=== PATIENT | male | born 1965 | race Caucasian/White ===

== ENCOUNTER 2024-06-13 08:13 | Outpatient (AMB) | payer MEDICARE, SELFPAY ==
--- NOTE | 2024-06-13 08:31 | MHC.OFFVIS ---
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 Patient reports his knee pain has been present for about 3 years ago. He was treated at [facility] for his back as well as his knees which did not provide him with relief. He was also seen at [facility] in the past who told him they would not operate on him. He d/c care as they did not accept his insurance. Currently his pain is located at the anterior, lateral and medial aspect of knee and both knees are equal in pain. Denies numbness or tingling. Finds some relief with hydrochloric acid 200mg daily as well as Tylenol and Advil. 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 He was previously seen by [facility] for bilateral knees and has had cortisone injections which were helpful in the beginning however they soon became ineffective. He is a diabetic which is well controlled. States his A1c is approximately 6.9. He was on Ozempic for approximately a year and did lose a significant amount of weight however insurance no longer covers this and he had to come off. He states he does not smoke. He does have what appears to be venous stasis but does not see a vascular doctor. Denies cardiopulmonary history. States he does have history of stroke in his family. He is retired, used to work in the [employer] business. Does do some work now with [employer]. Finds it difficult to ambulate on a daily basis climb stairs. Standing on his feet for long periods of time also causes discomfort. [facility] Medical History (Updated 06/13/24 @ 11:23 by Marti Bernabe PA-C) Venous stasis Diabetes Surgical History (Updated 06/13/24 @ 08:37 by ANGELITA Malin) Hx of hand surgery Family History (Updated 06/13/24 @ 11:21 by Marti Bernabe PA-C) Other Stroke Social History (Updated 06/13/24 @ 08:41 by ANGELITA Malin) Patient Tobacco Use Status: Never used Tobacco Current occupational status: retired Review of Systems Const All systems reviewed & are unremarkable except as noted in HPI and below Physical Exam Vital Signs: BMI result Body Mass Index 53.9 Const General: cooperative and no acute distress Orientation/consciousness: patient oriented x3 Resp Effort & Inspection: normal respiratory effort and able to speak in complete sentences Cardio Peripheral pulses: Peripheral pulses 2+ throughout Neuro General: patient oriented x3 Extrem Other: Bilateral knees are normal to inspection. He has full flexion and extension. Mild tenderness medially. Crepitus with range of motion of the knee along the patella laterally. He does have venous stasis bilateral lower extremities right worse than left. Neurovascularly intact. Office Procedures AMB Joint Injection/Aspiration Joint Injection/Aspiration Primary Site: right knee Secondary Site: left knee Prep: site was prepped using aseptic technique, ethochloride spray was applied and injection warnings given Injected: 40 mg of, DepoMedrol, with 8 mL of, 1% plain lidocaine and in the joint Approach Used: anterolateral Procedure: The patient tolerated the procedure well and there was some relief with the local anesthesia Coding 43502 - Glenohumeral/Tronchanteric Bursa/Intraarticular Procedure code (CPT) selection complete Results Reviewed Results Reviewed: X-rays of both knees obtained in the office today and reviewed by me show end-stage medial compartment osteoarthritis with severe patellofemoral arthritis Assessment & Plan Assessment & Plan (1) Arthritis of both knees: Code(s): M17.0 - Bilateral primary osteoarthritis of knee Category: Medical Plan: We discussed options today which includes surgical versus nonsurgical intervention. I explained the risks of total knee arthroplasty with a BMI of 53, diabetes and evidence of venous stasis/insufficiency. Complications such as wound healing infection and blood clots/pulmonary embolism were discussed with him today I encouraged him to get in contact with his primary care doctor again to discuss Ozempic since he has had good results from it in the past and now with new insurance he may qualify. I also recommend he meet with Dr. Bowman in 3 months to see if we can get the process started to optimize him to be a surgical candidate going forward. We discussed benefits of steroid injection which she is interested in today. Both knees were injected today with steroid which she tolerated well. We also discussed their diabetes and the effect the steroid can have on thier blood glucose levels; therefore, they will continue to monitor these very closely over the next 72 hours The patient is content with this plan and will see us in [address] Bowman, sooner if needed. Orders: Orders XR knee RT 3V Today M17.11 - Unilateral primary osteoarthritis, right knee XR knee LT 3V Today M25.562 - Pain in left knee Coding Level of Care Code New Pt Level 4 (04042) Complex EM visit Add On G2211 Diagnoses Arthritis of both knees M17.0 CPT Codes Coding - Joint 7: 66339 - Glenohumeral/Tronchanteric Bursa/Intraarticular ([id number])
--- OUTSIDE RECORDS SUMMARY | 2024-06-13 08:33 | XMS_ITS | Clinical Summary ---
Author Organization [facility], Address [address] [place] [address] Phone Care Team Providers Care Opener Name Role Phone Marvin Khan MD Primary Care Provider [phone]- [phone] Allergies Active Allergy Reactions Criticality Noted Date Comments Atorvastatin 03/03/2022 Cefazolin 03/03/2022 Other reaction(s): glossal edema Iodinated Contrast Media Swelling 03/03/2022 Medications aspirin (ST SHRUTHI) 81 MG EC tablet Take 81 mg by mouth 1 (one) time each day Active bumetanide (BUMEX) 1 MG tablet Take 1 mg by mouth 1 (one) time each day Active glipiZIDE (GLUCOTROL) 10 MG tablet Take 10 mg by mouth in the morning and 10 mg in the evening. Take before meals. Active Empagliflozin (Jardiance) 10 MG tablet Take 10 mg by mouth 1 (one) time each day in the morning Active insulin glargine (LANTUS) 100 UNIT/ML injection Inject under the skin every night Active losartan (COZAAR) 100 MG tablet Take 100 mg by mouth 1 (one) time each day Active Colchicine (Mitigare) 0.6 MG capsule Take by mouth Active OMEPRAZOLE PO Take by mouth Active rosuvastatin (CRESTOR) 20 MG tablet Take 20 mg by mouth 1 (one) time each day Active spironolactone (ALDACTONE) 25 MG tablet Take 25 mg by mouth 1 (one) time each day Active Dulaglutide (Trulicity) 0.75 MG/0.5ML solution pen-injector Inject under the skin Active Dulaglutide (Trulicity) 1.5 MG/0.5ML solution pen-injector Inject under the skin Active cetirizine (ZyrTEC) 10 MG tablet Take 10 mg by mouth 1 (one) time each day Active Active Problems Problem Noted Date Diagnosed Date Stage 3b chronic kidney disease 07/27/2022 Stage 3a chronic kidney disease 03/09/2022 Renal disorder due to type 2 diabetes mellitus 1 05/09/2021 Essential (primary) hypertension 03/09/2022 Diabetes mellitus 03/03/2022 Overview (03/03/2022): 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;[facility],[place] Vitamin D deficiency 03/03/2022 Stage 3 chronic kidney disease 03/03/2022 Adrenal mass 03/03/2022 Immunizations Name Administration Dates Next Due H1N1 Inj 04/08/2009 Influenza Whole 01/16/2019, 8,01/04/2012,12/22/2010,01/16,03/13/2008,02/24/2007,03/18/2006 Influenza, Unspecified 02/17/2021,2019,05/16/2017,03/17/2015,12/2013,12/28/2012,01/16/2010 Moderna SARS-COV-2 02/16/2021,07/10/2020, 021 Pneumococcal Polysaccharide 2007, 8 Tdap 10/03/2012 Tetanus Toxoid, Unspecified 2002 Social History Tobacco Use Types Packs/Day Years Used Date Smoking Tobacco: Never Assessed Sex and Gender Information Value Date Recorded Sex Assigned at Not on file Legal Sex Male 5:19 PM EST Gender Identity Not on file Sexual Orientation Not on file Plan of Treatment Health Maintenance Due Date Last Done Comments Pneumococcal Vaccine: Pediatrics (0 to 5 Years) and At-Risk Patients (6 to 64 Years) (3 of 3 - PCV) 2008 2007, 02/24/1998 Colorectal Cancer Screening: Annual FOBT 2012 Colorectal Cancer Screening: Colonoscopy 2012 Colorectal Cancer Screening: Sigmoidoscopy 2012 Diabetes: Ophthalmology Exam 03/02/2022 Diabetes: Pedal Pulse Checked 03/02/2022 Diabetes: Sensory Foot Exam 03/02/2022 Diabetes: Visual Foot Exam 03/02/2022 Diabetes: Hemoglobin A1C 08/24/2023 05/26/2023 Influenza Vaccine (#1) 2023 , 01/18/2020, 01/16/2019, Additional history exists Hepatitis B Vaccine Aged Out No longe r eligible based on patient's age to complete this topic Procedures Procedure Name Priority Date/Time Associated Diagnosis Comments HEMOGLOBIN A1C Routine 05/26/2023 8:49 AM EST Stage 3b chronic kidney disease (HCC) Renal disorder due to type 2 diabetes mellitus <Other diabetic kidney complication> (HCC) Essential (primary) hypertension from Last 3 Months or Most Recently Relevant to Health Maintenance Results * (ABNORMAL) Hemoglobin A1c (05/26/2023 8:49 AM EST) Hemoglobin A1C 9.1(H) (4.0-5.6) % [facility] Comment: MONITORING: In known diabetic patients, hemoglobin A1c targets should be discussed with health care provider. DIAGNOSTIC USE: ??The [place] Diabetes Association (ADA) and the World Health Organization (WHO) recommend the use of HbA1c to diagnose diabetes using a threshold of 6.5%. Patients who have an HbA1c between 5.7% and 6.4% are considered at increased risk for developing diabetes in the future. CAUTION: Falsely low HbA1c results may be observed in patients with hemolytic anemia, homozygous forms of abnormal hemoglobin (e.g. SS, CC, SC), , recent blood loss or hemoglobin F greater than 7%. Fructosamine may be used as an alternate test in these cases. REFERENCE: ADA: Standards of Medical Care in Diabetes 2020, The Journal of Clinical and Applied Research and Education Volume 43, Supplement 1 Testing performed or reported by [facility] [employer], a Service of [facility], [address] [place] [id number] Molina Vaca MD, Go Go Dancer IA# [id number] Blood (Blood, Venous) 05/26/2023 8:49 AM EST 05/26/2023 9:27 AM EST us Wyatt Nance MD LAB BLOOD ORDERABLES Final Resul t [facility] from Last 3 Months or Most Recently Relevant to Health Maintenance Insurance [facility] Care Teams Opener Relationship Specialty Start Date End Date Marvin Khan MD [address] [place] [address] [address] [place], [place] PCP - General Internal Medicine 03/02/22
[2024-06-13 08:34] VITALS: BMI 53.9
== END 2024-06-13 11:01 | disposition home or self-care (01) ==
PROVIDERS: Visit Provider Physician Assistant
DX: M17.0 Bilateral primary osteoarthritis of knee (principal)
CPT/HCPCS: 20610; 99204

== ENCOUNTER → 2024-06-13 08:16 | Outpatient (BNV) | payer MEDICARE, SELFPAY | PROVIDERS: Visit Provider Radiology Diagnostic Radiology | DX: M17.11 Unilateral primary osteoarthritis, right knee (principal); M25.562 Pain in left knee | CPT/HCPCS: 73562 ==

== ENCOUNTER 2024-06-13 10:03 | Outpatient (REF) | payer MEDICARE, SELFPAY ==
--- NOTE | ~2024-06-13 | XR_ITS ---
CLINICAL HISTORY: M17.11 - Unilateral primary osteoarthritis, right knee 2 view right knee Comparison: None Findings: Bones intact. No dislocations. There is marked medial joint space narrowing with [id number]. Small marginal osteophytes are noted. There is patellofemoral joint space Narrowing as well. No joint effusion. No radiopaque foreign body. IMPRESSION: 1. Marked medial joint space narrowing with [id number]. 2. Patellofemoral joint space. This document has been electronically signed by: Al Kilgore MD on 06/13/2024 10:43:46
--- NOTE | ~2024-06-13 | XR_ITS ---
CLINICAL HISTORY: M25.562 - Pain in left knee 4 view left knee Comparison: None Findings: There is marked medial joint space narrowing with bone on bone. Lateral compartment is normal. Patellofemoral joint demonstrates no acute abnormalities. There is a small suprapatellar effusion. No radiopaque foreign body. IMPRESSION: 1. Marked medial joint space narrowing with bone on bone. 2. Small suprapatellar effusion. This document has been electronically signed by: Al Kilgore MD on 06/13/2024 10:39:09
--- OUTSIDE RECORDS SUMMARY | 2024-06-15 11:09 | XMS_ITS | Clinical Summary ---
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 DIAGNOSTIC USE: ??The [place] Diabetes Association (ADA) and the World Health [...] Supplement 1 Testing performed or reported by [facility] Reference [employer], a Service of [facility], [address] [place] [id number] Molina Vaca MD, Nursing Staff Development Coordinator IA# [id number] Blood (Blood, Venous) 05/26/2023 8:49 AM EST 05/26/2023 9:27 AM EST us Wyatt Nance MD LAB BLOOD ORDERABLES Final Resul t [facility] from Last 3 Months or Most Recently Relevant to Health Maintenance Insurance [facility] Care Teams Materials Recycler Relationship Specialty Start Date End Date Marvin Khan MD [address] [place] [address] [address] [place], [place] PCP - General Internal Medicine 03/02/22
== END 2024-06-13 10:04 | disposition home or self-care (01) ==
LOC: HO.HOSX 10:03
PROVIDERS: Visit Provider Physician Assistant
DX: M25.562 Pain in left knee (principal); M25.561 Pain in right knee; M17.0 Bilateral primary osteoarthritis of knee
CPT/HCPCS: 20610; 73562; 99202; J1010; J2003

== ENCOUNTER 2024-07-02 08:37 | Outpatient (AMB) | payer MEDICARE, SELFPAY ==
--- NOTE | 2024-07-02 07:49 | A.OFFVIS_ITS ---
Vital Signs 07/02/24 08:41 07/02/24 08:43 Height 5 ft 9 in 5 ft 9 in Weight 365 lb 365 lb BMI 53.9 53.9 Intake Visit Reasons: OV - Bilateral Knee Pain Intake Note: Choco is a 59 year old male who presents today for a follow up of his bilateral knee OA. He was last seen with Marti on 06/13/24 where bilateral knees were injected. He was previously seen at [facility] where he was told that he was not a surgical candidate. Patient reports that he has had good relief with the injections - he would like to discuss knee replacements. The knees are equally painful. Allergies atorvastatin [From Lipitor] Adverse Reaction (Verified 07/02/24 08:45) Joint Pain cephazolin Allergy (Uncoded 07/02/24 08:43) unknown iv contrast Allergy (Uncoded 07/02/24 08:43) unknown HPI HPI OV - Bilateral Knee Pain: Details: 59-year-old presents to the office today for bilateral OA. He was previously seen by [facility] for bilateral knees and has had cortisone injections which were helpful in the beginning however they soon became ineffective. He is a diabetic which is well controlled. States his A1c is approximately 6.9. He was on Ozempic for approximately a year and did lose a significant amount of weight however insurance no longer covers this and he had to come off. He states he does not smoke. He does have what appears to be venous stasis but does not see a vascular doctor. Denies cardiopulmonary history. States he does have history of stroke in his family. 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 Finds it difficult to ambulate on a daily basis climb stairs. Standing on his feet for long periods of time also causes discomfort. 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
[2024-07-02 08:41] VITALS: BMI 53.9
[2024-07-02 08:43] VITALS: BMI 53.9
--- NOTE | 2024-07-02 09:34 | MHC.OFFVIS ---
Vital Signs 07/02/24 08:41 07/02/24 08:43 07/02/24 09:39 Height 5 ft 9 in 5 ft 9 in Weight 365 lb 365 lb BMI 53.9 53.9 53.9 Intake Visit Reasons: OV - Bilateral Knee Pain Allergies atorvastatin [From Lipitor] Adverse Reaction (Verified 07/02/24 08:45) Joint Pain cephazolin Allergy (Uncoded 07/02/24 08:43) unknown iv contrast Allergy (Uncoded 07/02/24 08:43) unknown HPI HPI OV - Bilateral Knee Pain: Details: Giuseppe is a 59-year-old gentleman with bilateral knee osteoarthritis. He has been to see surgeons in the past and has had injections and physical therapy and was working on weight loss and glucose control. His insurance changed and he comes in here to discuss continuing his care. He feels very limited in his ambulatory capacity. He feels that his knee arthritis is preventing him from exercising and losing weight. He feels quality of his life is diminished. [facility] Medical History (Updated 07/02/24 @ 09:37 by Kris Bowman MD) Venous stasis Diabetes Surgical History (Updated 06/13/24 @ 08:37 by ANGELITA Malin) Hx of hand surgery Family History (Updated 06/13/24 @ 11:21 by Marti Bernabe PA-C) Other Stroke Social History (Updated 06/13/24 @ 08:41 by ANGELITA Malin) Patient Tobacco Use Status: Never used Tobacco Current occupational status: retired Physical Exam Vital Signs: BMI result Body Mass Index 53.9 Extrem Other: Varus alignment bilateral knees. 10 to 125 degrees bilaterally. Medial compartment tenderness to palpation. Bilateral venous stasis lower legs right greater than left with several chronic wounds in the lateral aspect of the right lower leg. Distally I can not palpate pulses but is feet are warm and seemingly well perfused. Quality Reporting (2019) Adult ([facility] 138/06/09/68) Body Mass Index: 53.9 Results Reviewed Results Reviewed: I personally reviewed relevant radiographs. Severe bilateral varus osteoarthritis Assessment & Plan Assessment & Plan (1) Arthritis of both knees: Code(s): M17.0 - Bilateral primary osteoarthritis of knee Category: Medical Plan: Choco is a 59-year-old gentleman with severe bilateral knee osteoarthritis. He has had injections most recently about a month ago which were approximately 50% helpful. He continues, however, to be unable to ambulate comfortably and his daily activities are severely limited. He does have risk factors for arthroplasty including high BMI, diabetes and venous stasis of the lower legs. We had a long discussion regarding treatment options. I do think arthroplasty is in his future but we need to try to mitigate these risks factors. I recommend ABIs is I can not easily palpate his dorsalis pedis pulse. I also recommend a referral to bariatric. Apparently he was on Ozempic but it stopped working after a short period of time. He is not particularly interested in surgery but his insurance has. Pain for Ozempic so he is not sure what to do next. I think a referral to bariatric may be of some assistance. I also think he would benefit from viscosupplementation. We will do this in a proximally 2 months. (2) Morbid obesity with BMI of 50.0-59.9, adult: Code(s): E66.01 - Morbid (severe) obesity due to excess calories; Z68.43 - Body mass index [BMI] 50.0-59.9, adult Category: Medical Plan: referral to bariatrics (3) Diabetes: Code(s): E11.9 - Type 2 diabetes mellitus without complications Category: Medical Plan: controlled (4) Venous stasis: Code(s): I87.8 - Other specified disorders of veins Category: Medical Plan: ABIs and possible referral to vascular Orders: Orders US MARY complete Today I87.8 - Other specified disorders of veins Referrals Medical Weight Management Referral E66.01 - Morbid (severe) obesity due to excess calories Coding Level of Care Code Est Pt Level 4 (76899) Diagnoses Arthritis of both knees M17.0 Morbid obesity with BMI of 50.0-59.9, adult E66.01; Z68.43 Diabetes E11.9 Venous stasis I87.8
[2024-07-02 09:39] VITALS: BMI 53.9
== END 2024-07-02 09:15 | disposition home or self-care (01) ==
LOC: HO.HOS 08:38
PROVIDERS: Visit Provider Orthopaedic Surgery
DX: M17.0 Bilateral primary osteoarthritis of knee (principal); E66.01 Morbid (severe) obesity due to excess calories; Z68.43 Body mass index [BMI] 50.0-59.9, adult; I87.8 Other specified disorders of veins
CPT/HCPCS: 99214

== ENCOUNTER → 2024-07-02 08:37 | Outpatient (BNVA) | payer MEDICARE, SELFPAY | PROVIDERS: Visit Provider Orthopaedic Surgery | DX: M17.0 Bilateral primary osteoarthritis of knee (principal); E66.01 Morbid (severe) obesity due to excess calories; E11.9 Type 2 diabetes mellitus without complications; I87.8 Other specified disorders of veins; Z68.43 Body mass index [BMI] 50.0-59.9, adult | CPT/HCPCS: 99212 ==

== ENCOUNTER → 2024-07-12 14:14 | Outpatient (BNVA) | payer MEDICARE, SELFPAY | PROVIDERS: Visit Provider Physician Assistant Surgical ==

== ENCOUNTER 2024-07-23 08:09 | Outpatient (AMB) | payer MEDICARE, SELFPAY ==
--- OUTSIDE RECORDS SUMMARY | 2024-07-23 08:25 | XMS_ITS | Clinical Summary ---
Author Organization [facility] [place], Address 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 DIAGNOSTIC USE: ??The [place] Diabetes Association (ADA) and the World Health [...] Supplement 1 Testing performed or reported by [facility] Reference [employer], a Service of [facility], [address] [place] [id number] Molina Vaca MD, Extension Service Advisor IA# [id number] Blood (Blood, Venous) 05/26/2023 8:49 AM EST 05/26/2023 9:27 AM EST us Wyatt Nance MD LAB BLOOD ORDERABLES Final Resul t [facility] from Last 3 Months or Most Recently Relevant to Health Maintenance Insurance [facility] Care Teams Teacher Music Relationship Specialty Start Date End Date Marvin Khan MD [address] [place] [address] [address] [place], [place] PCP - General Internal Medicine 03/02/22
--- NOTE | 2024-07-23 09:10 | MHC.OFFVISWM ---
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 BMI 54.1 Allergies atorvastatin [From Lipitor] Adverse Reaction (Verified 07/23/24 09:10) Joint Pain cephazolin Allergy (Uncoded 07/23/24 09:10) unknown iv contrast Allergy (Uncoded 07/23/24 09:10) unknown Medication List - Last Reconciled 07/23/24 by Juan Antonio Yun MD bumetanide 1 mg PO BID glipizide ER 10 mg PO DAILY insulin glargine (Lantus Solostar U-100 Insulin) 60 units subcut DAILY losartan 100 mg PO DAILY rosuvastatin mg PO DAILY spironolactone 50 mg PO BID HPI HPI 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 BMI 54.1: Details: Start time: 9am, End time: 10.04am I spent 59 minutes speaking with the patient on the phone plus an additional 5 minutes reviewing and updating records for a total of 64 minutes HPI Comments Details: Previous weight loss efforts: ([employer] program lost 28lbs), Ozempic 2mg/wk for 8 months (lost 30lbs) Wakes up: 7.30am, Sleeps: 10pm Breakfast: 8am (eggs with toast) Lunch: 12pm (soups or sandwich) Dinner: 5pm (meat, chicken, fish, vegetables) Snacks: 3-4pm (popcorn), occasionally 7-8pm (popcorn) Exercise: none Beverages: Coffee (1 cup a few days per week), tea: none, soda: none, juice: none, ETOH: 2/wk (2 vodka, or beers x2/wk) PFS Medical History (Updated 07/23/24 @ 09:18 by Juan Antonio Yun MD) Insulin dependent type 2 diabetes mellitus DJD (degenerative joint disease) Hyperlipidemia Obstructive sleep apnea on CPAP Hypertension Morbid obesity Venous stasis Diabetes Surgical History (Updated 07/23/24 @ 09:18 by Juan Antonio Yun MD) History of inguinal hernia repair History of umbilical hernia repair Hx of vertebral fracture repair Hx of hand surgery Family History (Updated 07/12/24 @ 14:21 by ANGELITA Naqvi) Father Stroke Brother Leukemia Sister Family history of cervical cancer Social History (Updated 06/13/24 @ 08:41 by Chante Euceda Adalgisa) Patient Tobacco Use Status: Never used Tobacco Current occupational status: retired Telehealth Telehealth Telehealth Platform: Telephone Location of provider rendering services: practice address Location of patient: address on file Patient Identification confirmed using: Name, : Yes Telehealth method: voice only Patient verbally consented to treatment: Yes Patient verbally consented to billing insurance company: Yes Patient informed of any privacy concerns related to visit: Yes Minutes spent on Phone/Video with Pt.: 64 Assessment & Plan Assessment & Plan (1) Morbid obesity: Code(s): E66.01 - Morbid (severe) obesity due to excess calories Category: Medical Plan: 1. Plan for lap sleeve gastrectomy. If diaphragmatic or ventral hernias are present at time of surgery, these will be repaired laparoscopically as well. I emphasized the importance of close follow-up, adherence to instructions and good communication. The surgery does not replace the need to change your lifestlyle which is the cause of the obesity problem. The surgery provides the motivation to try again to change your lifestyle, it reduces the appetite and make the transition to a better lifestyle easier and doubles the amount of weight you would lose compared to doing the lifestyle change without the surgery. You will need to be on a liquid diet with protein shakes for 2 weeks before surgery to maximize weight loss and boost your nutritional status to recover better from surgery and also for the first two weeks after surgery to let the stomach heal before we introduce other foods. After the first 2 weeks we will introduce protein bars and soft foods like scrambled eggs, cottage cheese and yogurt and after the 6th week will introduce meat, fish and cooked vegetables in small amounts. Over time you should be able to eat everything in small amounts. Side effects like nausea, vomiting, heartburn or abdominal pain are not common in the practice unless you are not following in the practice. This operation requires lifetime commitment to following in our practice and communication with me. You will much less weight and experience side effects if you don?t communicate or not following in the practice. Complications are rare and in our practice is about 1/10 of the national average. However, you can develop bleeding that may require transfusion (hasn?t happened for year in the practice), you may from complications (we did not have any deaths in the practice) and infections. Infections are usually a result of breakdown in communication or not understanding or following directions correctly. They are difficult to treat, they can happen during the first 6 weeks, they may require to be in the hospital for weeks or even months, not being able to eat by mouth and you may have drains and surgeries to try and correct the issue. Other risks and complications include possible conversion to an open procedure, leaks, small bowel obstruction, blood clots, cardiac, or pulmonary complications, as [facility] complications such as ulcers, insufficient weight loss and vitamin deficiencies. 2. Nutritional counseling. Start with one premade Premier protein (buy at [employer], [employer], [employer], [employer]) shake at 8am-10am, 2 Fit Crunch 16gr protein bars (Buy at [employer] or [employer]) at 11am-1pm, and at 2pm-4pm, dinner at 5pm (12 forks of protein and 12 forks of salad/vegetables) and one more protein bar after dinner at 7pm-9pm. So you do 1 protein shake, 3 protein bars and one meal per day. Meal to include lean meat (beef, fish, pork, turkey, chicken), or sinhala yogurt, or egg whites, or beans with a salad with olive oil and fruits (berries, pears, apples, kiwi). Avoid salt, breads, potatoes, rice, pasta, desserts. 3. You will receive a link of our software [employer]allely to generate an individualized nutritional and exercise plan specific for you. Please send me a screenshot of the plans you will generate 3. Each shake would be drunk slowly, like coffee in a period of 2 hours. 4. Cut each bar in 4 pieces and eat each piece in 30min to make each bar last 2 hours. 5. I emphasized the importance of measuring accurately the food portion and measure it when serving the food in plate 6. The meal portions include 12 full-size forks of meat and 12 full-size forks of salad. You always eat the meat portion but you can replace up to 6 forks for salad/vegetables with rice, potatoes or pasta, or a fruit if you like. The less you do it the better weight loss will be. 7. One full-size fork is what it can be scooped on the fork without falling aside and not what can be bit with the fork. Use regular forks like those you find in a typical restaurant. 8. Please use your body composition scale we discussed and send me weight measurements as soon as possible and then once a week. Always include your diet and exercise plan. 9. The best choice would be to purchase a stationary bike at home that can track calories. I would like you to start exercising on the bike for 10 minutes at a time, 3 days per day, daily 10. Goal is to lose at least 1.5-2lbs per week 11. Goal to lose 10% of your weight before surgery, which is about 26lbs. Ultimate weight goal: 240lbs before surgery 12. Please follow the diet plan exactly without any change. If you don't like something about the plan or you feel hungry you need to communicate with me so I can help you revise the plan. You should not change the plan yourself 13. be scheduled for EGD to assess the stomach's anatomy. The possibility of biopsies was discussed. Patient needs to avoid use of NSAIDs and aspirin for 1 week prior to EGD. You must be on liquids only the day before your endoscopy. Risks of perforation and bleeding was discussed with the patient. This will be an outpatient procedure with IV sedation. 14. As of tomorrow, please send me a picture of your meal plate after you measure it, but before you consume it. 15. 7. I ordered a medication to help you with the weight loss which is called Gato. My office will try to authorize it. Please let me know when you receive it so I can give you a meal and exercise plan. Common side effects include nausea, vomiting, constipation, diarrhea, abdominal pain. Please let me know if you develop any of these symptoms. 16. Emphasized the importance of checking his blood glucose levels frequently and daily and to report to me any blood glucose below 100, so I can adjust his insulin and prevent hypoglycemic episodes 17. Emphasized the importance of monitoring the blood pressure daily in am when wakes up and two more times throughout the day. If systolic blood pressure is 110 mmHg, or less I explained to the patient that needs to notify me. Also I explained the symptoms of orthostatic hypotension (dizziness and lightheadedness) for which the patient also needs to notify me. Orders: Orders Hemoglobin A1c Today E11.9 - Type 2 diabetes mellitus without complications, E66.01 - Morbid (severe) obesity due to excess calories, E78.5 - Hyperlipidemia, unspecified, G47.33 - Obstructive sleep apnea (adult) (pediatric), I10 - Essential (primary) hypertension, Z79.4 - alf (current) use of insulin H Pylori Breath Test Today E11.9 - Type 2 diabetes mellitus without complications, E66.01 - Morbid (severe) obesity due to excess calories, E78.5 - Hyperlipidemia, unspecified, G47.33 - Obstructive sleep apnea (adult) (pediatric), I10 - Essential (primary) hypertension, Z79.4 - alf (current) use of insulin Comprehensive Met. 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) use of insulin Vitamin B12 and Folate Today E11.9 - Type 2 diabetes mellitus without complications, E66.01 - Morbid (severe) obesity due to excess calories, E78.5 - Hyperlipidemia, unspecified, G47.33 - Obstructive sleep apnea (adult) (pediatric), I10 - Essential (primary) hypertension, Z79.4 - alf (current) use of insulin Zinc Today E11.9 - Type 2 diabetes mellitus without complications, E66.01 - Morbid (severe) obesity due to excess calories, E78.5 - Hyperlipidemia, unspecified, G47.33 - Obstructive sleep apnea (adult) (pediatric), I10 - Essential (primary) hypertension, Z79.4 - terminal operations manager (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) use of insulin C Reactive Protein Today E11.9 - Type 2 diabetes mellitus without complications, E66.01 - Morbid (severe) obesity due to excess calories, E78.5 - Hyperlipidemia, unspecified, G47.33 - Obstructive sleep apnea (adult) (pediatric), I10 - Essential (primary) hypertension, Z79.4 - alf (current) use of insulin Vitamin A Today E11.9 - Type 2 diabetes mellitus without complications, E66.01 - Morbid (severe) obesity due to excess calories, E78.5 - Hyperlipidemia, unspecified, G47.33 - Obstructive sleep apnea (adult) (pediatric), I10 - Essential (primary) hypertension, Z79.4 - alf (current) use of insulin TSH reflex Free T4 Today E11.9 - Type 2 diabetes mellitus without complications, E66.01 - Morbid (severe) obesity due to excess calories, E78.5 - Hyperlipidemia, unspecified, G47.33 - Obstructive sleep apnea (adult) (pediatric), I10 - Essential (primary) hypertension, Z79.4 - alf (current) use of insulin Ferritin Today E11.9 - Type 2 diabetes mellitus without complications, E66.01 - Morbid (severe) obesity due to excess calories, E78.5 - Hyperlipidemia, unspecified, G47.33 - Obstructive sleep apnea (adult) (pediatric), I10 - Essential (primary) hypertension, Z79.4 - terminal operations manager (current) use of insulin Vitamin D 25-OH Total Today E11.9 - Type 2 diabetes mellitus without complications, E66.01 - Morbid (severe) obesity due to excess calories, E78.5 - Hyperlipidemia, unspecified, G47.33 - Obstructive sleep apnea (adult) (pediatric), I10 - Essential (primary) hypertension, Z79.4 - alf (current) use of insulin US abdomen comp w elastography Today E11.9 - Type 2 diabetes mellitus without complications, E66.01 - Morbid (severe) obesity due to excess calories, E78.5 - Hyperlipidemia, unspecified, G47.33 - Obstructive sleep apnea (adult) (pediatric), I10 - Essential (primary) hypertension, Z79.4 - terminal operations manager (current) use of insulin Insulin Today E11.9 - Type 2 diabetes mellitus without complications, E66.01 - Morbid (severe) obesity due to excess calories, E78.5 - Hyperlipidemia, unspecified, G47.33 - Obstructive sleep apnea (adult) (pediatric), I10 - Essential (primary) hypertension, Z79.4 - terminal operations manager (current) use of insulin Complete Blood Count Auto Diff Today E11.9 - Type 2 diabetes mellitus without complications, E66.01 - Morbid (severe) obesity due to excess calories, E78.5 - Hyperlipidemia, unspecified, G47.33 - Obstructive sleep apnea (adult) (pediatric), I10 - Essential (primary) hypertension, Z79.4 - terminal operations manager (current) use of insulin Lipid 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 - alf (current) use of insulin IRON PROFILE Today E11.9 - Type 2 diabetes mellitus without complications, E66.01 - Morbid (severe) obesity due to excess calories, E78.5 - Hyperlipidemia, unspecified, G47.33 - Obstructive sleep apnea (adult) (pediatric), I10 - Essential (primary) hypertension, Z79.4 - terminal operations manager (current) use of insulin Vitamin B1 Today E11.9 - Type 2 diabetes mellitus without complications, E66.01 - Morbid (severe) obesity due to excess calories, E78.5 - Hyperlipidemia, unspecified, G47.33 - Obstructive sleep apnea (adult) (pediatric), I10 - Essential (primary) hypertension, Z79.4 - alf (current) use of insulin XR chest 2V Today E11.9 - Type 2 diabetes mellitus without complications, E66.01 - Morbid (severe) obesity due to excess calories, E78.5 - Hyperlipidemia, unspecified, G47.33 - Obstructive sleep apnea (adult) (pediatric), I10 - Essential (primary) hypertension, Z79.4 - alf (current) use of insulin ECG 12 lead EKG Today E11.9 - Type 2 diabetes mellitus without complications, E66.01 - Morbid (severe) obesity due to excess calories, E78.5 - Hyperlipidemia, unspecified, G47.33 - Obstructive sleep apnea (adult) (pediatric), I10 - Essential (primary) hypertension, Z79.4 - alf (current) use of insulin FL upper GI w air Today E11.9 - Type 2 diabetes mellitus without complications, E66.01 - Morbid (severe) obesity due to excess calories, E78.5 - Hyperlipidemia, unspecified, G47.33 - Obstructive sleep apnea (adult) (pediatric), I10 - Essential (primary) hypertension, Z79.4 - terminal operations manager (current) use of insulin Referrals Behavioral Health Referral E11.9 - Type 2 diabetes mellitus without complications, E66.01 - Morbid (severe) obesity due to excess calories, E78.5 - Hyperlipidemia, unspecified, G47.33 - Obstructive sleep apnea (adult) (pediatric), I10 - Essential (primary) hypertension, Z79.4 - terminal operations manager (current) use of insulin Nutrition/Dietitian Referral E11.9 - Type 2 diabetes mellitus without complications, E66.01 - Morbid (severe) obesity due to excess calories, E78.5 - Hyperlipidemia, unspecified, G47.33 - Obstructive sleep apnea (adult) (pediatric), I10 - Essential (primary) hypertension, Z79.4 - terminal operations manager (current) use of insulin Medications: New tirzepatide (Mounjaro) for 4 weeks 2.5 mg (0.5 mL) subcut QWEEK 2 mL 0RF
[2024-07-23 09:50] VITALS: BMI 54.1
== END 2024-07-23 10:04 | disposition home or self-care (01) ==
LOC: HO.HBS 08:09
PROVIDERS: PCP Family Medicine; Visit Provider Surgery
DX: E66.813 Obesity, class 3 (principal); Z68.43 Body mass index [BMI] 50.0-59.9, adult
CPT/HCPCS: 99205

== ENCOUNTER 2024-07-30 09:17 | Outpatient (AMB) | payer MEDICARE, SELFPAY ==
--- NOTE | 2024-07-30 09:36 | MHC.OFFVIS ---
Intake Visit Reasons: INJ Bilateral Knee Durolane Intake Note: Choco is a 59 year old male who presents today for Bilateral Knee Durolane Injections. Allergies atorvastatin [From Lipitor] Adverse Reaction (Verified 07/23/24 09:10) Joint Pain cephazolin Allergy (Uncoded 07/23/24 09:10) unknown iv contrast Allergy (Uncoded 07/23/24 09:10) unknown HPI HPI INJ Bilateral Knee Durolane: Details: Choco is a 59 year old male who presents today for Bilateral Knee Durolane Injections. [facility] Medical History (Updated 07/23/24 @ 09:18 by Juan Antonio Yun MD) Insulin dependent type 2 diabetes mellitus DJD (degenerative joint disease) Hyperlipidemia Obstructive sleep apnea on CPAP Hypertension Morbid obesity Venous stasis Diabetes Surgical History (Updated 07/23/24 @ 09:18 by Juan Antonio Yun MD) History of inguinal hernia repair History of umbilical hernia repair Hx of vertebral fracture repair Hx of hand surgery Family History (Updated 07/12/24 @ 14:21 by Jeannie Rivas Adalgisa) Father Stroke Brother Leukemia Sister Family history of cervical cancer Social History (Updated 06/13/24 @ 08:41 by Chante Euceda Adalgisa) Patient Tobacco Use Status: Never used Tobacco Current occupational status: retired Physical Exam Extrem Other: Skin clean dry and intact bilateral knees Office Procedures Joint Inj/Aspir; Non-Pain Clin Joint Injection/Drain Details: Injected Durolane. Site was prepped using aseptic technique. Patient tolerated the procedure well. Shoulders, Hips, Knees, Knee Large Joint Injection : Bilateral Knee Coding Procedure code (CPT) selection complete Assessment & Plan Assessment & Plan (1) Arthritis of both knees: Code(s): M17.0 - Bilateral primary osteoarthritis of knee Category: Medical Plan: Josselin bilateral knees. Follow up 3 months. Coding Level of Care Code Est Pt Level 2 (22638) Diagnoses Arthritis of both knees M17.0 CPT Codes Shoulders, Hips, Knees, - Knee Large Joint Injection : Bilateral Knee ([id number])
--- OUTSIDE RECORDS SUMMARY | 2024-07-30 10:16 | XMS_ITS | Clinical Summary ---
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;[facility],[place] Vitamin D deficiency 03/03/2022 Stage 3 chronic kidney disease 03/03/2022 Adrenal mass 03/03/2022 Immunizations Immunization Administration Dates Next Due H1N1 Inj 04/08/2009 [...] Due Date Last Done Comments Pneumococcal Vaccine: 50+ Years (3 of 3 - PCV) 2008 2007, 02/24/1998 Colorectal Cancer Screening: Annual FOBT 2012 Colorectal Cancer Screening: Colonoscopy 2012 Colorectal Cancer Screening: Sigmoidoscopy 2012 Diabetes: Ophthalmology Exam 03/02/2022 Diabetes: Pedal Pulse Checked 03/02/2022 Diabetes: Sensory Foot Exam 03/02/2022 Diabetes: Visual Foot Exam 03/02/2022 Diabetes: Hemoglobin A1C 08/24/2023 05/26/2023 Influenza Vaccine (Season Ended) 2024 02/17/2021, 01/18/2020, 01/16/2019, Additional history exists Pneumococcal Vaccine: Peds (0 to 5 Years) and At-Risk Patients (6 to 49 Years) Discontinued 2007, 02/24/1998 Hepatitis B Vaccine Aged Out No longe [...] AM EST) Hemoglobin A1C 9.1(H) (4.0-5.6) % [facility] Comment: MONITORING: In known diabetic patients, hemoglobin A1c targets should be discussed with health care provider. DIAGNOSTIC USE: ??The [place] Diabetes Association (ADA) and the World Health [...] Supplement 1 Testing performed or reported by [facility] Reference [employer], a Service of [facility], [address] [place] [id number] Molina Vaca MD, Family Practice Medical Doctor [facility]# [id number] Blood (Blood, Venous) 05/26/2023 8:49 AM EST 05/26/2023 9:27 AM EST us Wyatt Nance MD LAB BLOOD ORDERABLES Final Resul t [facility] from Last 3 Months or Most Recently Relevant to Health Maintenance Insurance [facility] Care Teams Custodial Maintenance Worker Relationship Specialty Start Date End Date Marvin Khan MD [address] [place] [address] [address] [place] PCP - General Internal Medicine 03/02/22
== END 2024-07-30 09:44 | disposition home or self-care (01) ==
LOC: HO.HOS 09:18
PROVIDERS: Visit Provider Orthopaedic Surgery
DX: M17.0 Bilateral primary osteoarthritis of knee (principal)
CPT/HCPCS: 20610

== ENCOUNTER → 2024-07-30 09:17 | Outpatient (BNVA) | payer MEDICARE, SELFPAY | PROVIDERS: Visit Provider Orthopaedic Surgery | DX: M17.0 Bilateral primary osteoarthritis of knee (principal) | CPT/HCPCS: 20610; J7318 ==

== ENCOUNTER 2024-08-02 14:27 | Outpatient (REF) | payer MEDICARE, SELFPAY ==
--- NOTE | ~2024-08-02 | US_ITS ---
CLINICAL HISTORY: I87.8 - claudication per [place] -CC IN US Bilateral ankle-brachial index Comparison: None Findings: On the right, posterior tibial ankle brachial index is 1.19, and dorsalis pedis MARY is 1.16. On the left, posterior tibial MARY is 1.11 and dorsalis pedis is 1.07. IMPRESSION: Normal lower extremity MARY This document has been electronically signed by: Branden Elias MD on 08/04/2024 09:20:01
--- OUTSIDE RECORDS SUMMARY | 2024-08-02 17:32 | XMS_ITS | Clinical Summary ---
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 DIAGNOSTIC USE: ??The [place] Diabetes Association (ADA) and the World Health [...] Supplement 1 Testing performed or reported by [facility] Reference [employer], a Service of [facility], [address] [place] [id number] Molina Vaca MD, Information Systems Security Specialist [facility]# [id number] Blood (Blood, Venous) 05/26/2023 8:49 AM EST 05/26/2023 9:27 AM EST us Wyatt Nance MD LAB BLOOD ORDERABLES Final Resul t [facility] from Last 3 Months or Most Recently Relevant to Health Maintenance Insurance [facility] Care Teams Ice Cream Dispenser Relationship Specialty Start Date End Date Marvin Khan MD [address] [place] [address] [address] [place] PCP - General Internal Medicine 03/02/22
== END 2024-08-02 14:28 | disposition home or self-care (01) ==
LOC: HO.US 14:27
PROVIDERS: PCP Family Medicine; Visit Provider Orthopaedic Surgery
DX: I87.8 Other specified disorders of veins (principal)
CPT/HCPCS: 93923

== ENCOUNTER → 2024-08-02 14:30 | Outpatient (BNV) | payer MEDICARE, SELFPAY | PROVIDERS: PCP Family Medicine; Visit Provider Specialist | DX: I87.8 Other specified disorders of veins (principal) | CPT/HCPCS: 93923 ==

== ENCOUNTER 2024-10-29 10:07 | Outpatient (AMB) | payer MEDICARE, SELFPAY ==
--- NOTE | 2024-10-29 10:14 | MHC.OFFVIS ---
Vital Signs 10/29/24 10:23 Height 5 ft 9 in Weight 366 lb BMI 54.0 Intake Visit Reasons: OV -Follow up B/L knee Durolane-last 07/30/24 Intake Note: Choco is a 59 year old male who presents today for a follow up of his bilateral knee OA. He received Bilateral Durolane injections 07/30/24. Patient reports that he has increased pain for about 2-3 weeks after injection, however after this timeframe his pain subsided and has had good relief. He is interested in discussing possible cortisone injection today. Allergies atorvastatin (From Lipitor) Adverse Reaction (Verified 07/23/24 09:10) Joint Pain cephazolin Allergy (Uncoded 07/23/24 09:10) unknown iv contrast Allergy (Uncoded 07/23/24 09:10) unknown HPI HPI OV -Follow up B/L knee Durolane-last 07/30/24: Details: Choco is a 59 year old male who presents today for a follow up of his bilateral knee OA. He received Bilateral Durolane injections 07/30/24. Patient reports that he has increased pain for about 2-3 weeks after injection, however after this timeframe his pain subsided and has had good relief. He is interested in discussing possible cortisone injection today. [facility] Medical History (Updated 07/23/24 @ 09:18 by Juan Antonio Yun MD) Insulin dependent type 2 diabetes mellitus DJD (degenerative joint disease) Hyperlipidemia Obstructive sleep apnea on CPAP Hypertension Morbid obesity Venous stasis Diabetes Surgical History (Updated 07/23/24 @ 09:18 by Juan Antonio Yun MD) History of inguinal hernia repair History of umbilical hernia repair Hx of vertebral fracture repair Hx of hand surgery Family History (Updated 07/12/24 @ 14:21 by ANGELITA Naqvi) Father Stroke Brother Leukemia Sister Family history of cervical cancer Social History (Updated 06/13/24 @ 08:41 by ANGELITA Malin) Patient Tobacco Use Status: Never used Tobacco Current occupational status: retired Physical Exam Vital Signs: BMI result Body Mass Index 54.0 Extrem Other: Varus alignment bilateral knees. 10 to 125 degrees bilaterally. Medial compartment tenderness to palpation. Bilateral venous stasis lower legs right greater than left with several chronic wounds in the lateral aspect of the right lower leg. Distally I can not palpate pulses but is feet are warm and seemingly well perfused. Assessment & Plan Assessment & Plan (1) Arthritis of both knees: Code(s): M17.0 - Bilateral primary osteoarthritis of knee Category: Medical Plan: Viscosupplementation was helpful and he feels ?okay?. I do not recommend further intervention at this time. (2) Morbid obesity with BMI of 50.0-59.9, adult: Code(s): E66.01 - Morbid (severe) obesity due to excess calories; Z68.43 - Body mass index [BMI] 50.0-59.9, adult Category: Medical Plan: Continue weight loss. He understands that his goal is a BMI of 40. Coding Level of Care Code Est Pt Level 3 (53624) Diagnoses Arthritis of both knees M17.0 Morbid obesity with BMI of 50.0-59.9, adult E66.01; Z68.43
[2024-10-29 10:23] VITALS: BMI 54.0
--- OUTSIDE RECORDS SUMMARY | 2024-10-29 10:52 | XMS_ITS | Clinical Summary ---
Author Organization [facility], Address [address] [place] [address] Phone Care Team Providers Care Copy Reader Name Role Phone Marvin Khan MD Primary Care Provider [phone] Allergies Active Allergy Reactions Criticality Noted Date [...] 03/09/2022 Diabetes mellitus 03/03/2022 Overview (03/03/2022): has Methods Study Analyst;[facility],[place] Vitamin D deficiency 03/03/2022 Stage 3 chronic [...] Hemoglobin A1C 08/24/2023 05/26/2023 Influenza Vaccine (#1) 2024 , 01/18/2020, 01/16/2019, Additional history exists Pneumococcal Vaccine: [...] AM EST) Hemoglobin A1C 9.1(H) (4.0-5.6) % [facility] Comment: MONITORING: In known diabetic patients, hemoglobin A1c targets should be discussed with health care provider. DIAGNOSTIC USE: The Citizen Of [place] Diabetes Association (ADA) and the World Health [...] Supplement 1 Testing performed or reported by [facility] [employer], a Service of [facility], [address] [place] [id number] Molina Vaca MD, Telecommunicator [facility]# [id number] Blood specimen (specimen) Venous blood / Unknown 05/26/2023 8:49 AM EST 05/26/2023 9:27 AM EST us Wyatt Nance MD LAB BLOOD ORDERABLES Final Resul t [facility] from Last 3 Months or Most Recently Relevant to Health Maintenance Insurance [facility] Care Teams Copy Reader Relationship Specialty Start Date End Date Marvin Khan MD [address] [place] [place] [address] [address] [place] PCP - General Internal Medicine 03/02/22
== END 2024-10-29 10:45 | disposition home or self-care (01) ==
LOC: HO.HOS 10:08
PROVIDERS: PCP Family Medicine; Visit Provider Orthopaedic Surgery
DX: M17.0 Bilateral primary osteoarthritis of knee (principal); E66.01 Morbid (severe) obesity due to excess calories; Z68.43 Body mass index [BMI] 50.0-59.9, adult
CPT/HCPCS: 99214

== ENCOUNTER → 2024-10-29 10:07 | Outpatient (BNVA) | payer MEDICARE, SELFPAY | PROVIDERS: PCP Family Medicine; Visit Provider Orthopaedic Surgery | DX: M17.0 Bilateral primary osteoarthritis of knee (principal); E66.01 Morbid (severe) obesity due to excess calories; Z68.43 Body mass index [BMI] 50.0-59.9, adult | CPT/HCPCS: 99212 ==

== ENCOUNTER 2025-01-31 08:57 | Outpatient (AMB) | payer MEDICARE, SELFPAY ==
--- NOTE | 2025-01-31 09:05 | MHC.OFFVIS ---
Vital Signs 01/31/25 09:08 Height 5 ft 9 in Weight 366 lb BMI 54.0 Intake Visit Reasons: Bilateral Knee Repeat Durolane Intake Note: Choco is a 59 year old male who presents today for Bilateral Knee Durolane Injections, these are repeat injections that were last done 07/30/2024. Patient reports that he had good relief with the last set of Durolane injections and is ready to have relief again. Allergies atorvastatin (From Lipitor) Adverse Reaction (Verified 01/31/25 09:08) Joint Pain cephazolin Allergy (Uncoded 01/31/25 09:08) unknown iv contrast Allergy (Uncoded 01/31/25 09:08) unknown HPI HPI Bilateral Knee Repeat Durolane: Details: Choco is a 59 year old male who presents today for Bilateral Knee Durolane Injections, these are repeat injections that were last done 07/30/2024. Patient reports that he had good relief with the last set of Durolane injections and is ready to have relief again. [facility] Medical History (Updated 07/23/24 @ 09:18 by Juan Antonio Yun MD) Insulin dependent type 2 diabetes mellitus DJD (degenerative joint disease) Hyperlipidemia Obstructive sleep apnea on CPAP Hypertension Morbid obesity Venous stasis Diabetes Surgical History (Updated 07/23/24 @ 09:18 by Juan Antonio Yun MD) History of inguinal hernia repair History of umbilical hernia repair Hx of vertebral fracture repair Hx of hand surgery Family History (Updated 07/12/24 @ 14:21 by ANGELITA Naqvi) Father Stroke Brother Leukemia Sister Family history of cervical cancer Social History (Updated 06/13/24 @ 08:41 by Chante Euceda Adalgisa) Patient Tobacco Use Status: Never used Tobacco Current occupational status: retired Physical Exam Exam Exam: No acute distress Skin clean dry and intact Vital Signs: BMI result Body Mass Index 54.0 Office Procedures Joint Inj/Aspir; Non-Pain Clin Joint Injection/Drain Details: Injected Durolane. Site was prepped using aseptic technique. Patient tolerated the procedure well. Shoulders, Hips, Knees, Knee Large Joint Injection : Bilateral Knee Coding Procedure code (CPT) selection complete Assessment & Plan Assessment & Plan (1) Arthritis of both knees: Code(s): M17.0 - Bilateral primary osteoarthritis of knee Category: Medical Plan: Injected Josselin bilateral knees. Coding Level of Care Code Est Pt Level 2 (38466) Diagnoses Arthritis of both knees M17.0 CPT Codes Shoulders, Hips, Knees, - Knee Large Joint Injection 28301: Bilateral Knee ([id number])
[2025-01-31 09:08] VITALS: BMI 54.0
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
== END 2025-01-31 10:00 | disposition home or self-care (01) ==
LOC: HO.HOS 08:57
PROVIDERS: PCP Family Medicine; Visit Provider Orthopaedic Surgery
DX: M17.0 Bilateral primary osteoarthritis of knee (principal)
CPT/HCPCS: 20610

== ENCOUNTER → 2025-01-31 08:57 | Outpatient (BNVA) | payer MEDICARE, SELFPAY | PROVIDERS: PCP Family Medicine; Visit Provider Orthopaedic Surgery | DX: M17.0 Bilateral primary osteoarthritis of knee (principal) | CPT/HCPCS: 20610; J7318 ==

== ENCOUNTER 2025-02-11 09:26 | Outpatient (REF) | payer MEDICARE, SELFPAY ==
--- NOTE | ~2025-02-11 | US_ITS ---
EXAMINATION: US ABDOMEN COMPLETE WITH LIVER ELASTOGRAPHY HISTORY: E66.01 - Morbid (severe) obesity due to excess calories TECHNIQUE: Real-time grayscale ultrasound imaging of the abdomen was performed and images were reviewed. COMPARISON: There are no prior studies available for comparison. FINDINGS: Liver: The right lobe of the liver measures 20.6 cm in size. The left lobe of the liver measures 16.5 cm in size. The liver demonstrates increased echotexture, consistent with steatosis. There is probable focal fatty sparing adjacent to the gallbladder. No focal mass or intrahepatic biliary ductal dilatation is identified. There is normal hepatopedal flow in the portal vein. Ultrasound elastography of the liver was performed with 10 separate measurements of the liver parenchyma with the patient in the supine position. Measurements were obtained approximately 2 cm below Blair's capsule and perpendicular to the capsule. The median shear wave velocity is 1.32 m/s. The interquartile range/median (IQR/median) is 0.14. Gallbladder and biliary tree: There is probable cholelithiasis versus echogenic bile. There is no wall thickening or pericholecystic fluid. There is no sonographic Gallagher sign. The common bile duct is normal in caliber measuring 3 mm. Kidneys: The right kidney measures 12.0 cm in length. The left kidney measures 12.8 cm in length. The kidneys are unremarkable, without evidence of masses, hydronephrosis, or calculi. Pancreas: The pancreas is obscured by bowel gas. Spleen: The spleen is normal in size and contour, measuring 12.1 cm in length. Abdominal aorta and inferior vena cava: The visualized portions of the abdominal aorta and inferior vena cava are normal in caliber. There is no free fluid in the abdomen. US/US abdomen comp w elastography IMPRESSION: 1. Hepatomegaly and hepatic steatosis. 2. Cholelithiasis versus mobile echogenic bile. The median shear wave velocity in the liver is 1.32 m/s, corresponding to a median liver stiffness of 5.54 kPa. The IQR/median value is 0.14. This is indicative of a quality data set. Findings are indicative of a low elastography value which rules out advanced chronic liver disease in asymptomatic patients. REFERENCE: Society of Radiologists in Ultrasound Liver Stiffness Thresholds (2020): LIVER STIFFNESS THRESHOLDS: *Shear wave velocity less than 1.3 m/s (Liver Stiffness equal or less than 5 kPa): High probability of being normal. *Shear wave velocity less than 1.7 m/s (Liver Stiffness less than 9 kPa): In the absence of other known clinical signs, rules out compensated advanced chronic liver disease. *Shear wave velocity between 1.7-2.1 m/s (Liver Stiffness 9-13 kPa): Suggestive of compensated advanced chronic liver disease but need further test for confirmation. *Shear wave velocity between 2.1-2.4 m/s (Liver Stiffness 13-17 kPa): Rules in compensated advanced chronic liver disease. *Shear wave velocity greater than 2.4 m/s (Liver Stiffness over 17 kPa): Suggestive of clinically significant portal hypertension. QUALITY OF DATA SET: *IQR/Median value equal or less than 0.15 implies a quality data set. *IQR/Median value over 0.15 implies a poor quality data set. SIGNIFICANT CHANGE FROM PRIOR EXAM: Significant change if liver stiffness measurement is 10% or greater from prior exam. OTHER CONSIDERATIONS: The stage of liver fibrosis may be overestimated in the setting of acute hepatitis, liver inflammation, elevated liver function tests, hepatic vascular congestion, obstructive cholestasis, non-fasting state, and infiltrative diseases such as amyloidosis and lymphoma. In some patients with NAFLD, the liver stiffness thresholds for compensated advanced chronic liver disease may be lower. In causes other than viral hepatitis and NAFLD, liver stiffness thresholds are not well established. Electronically signed by: Jigar Rey MD 02/11/2025 11:22 AM EDT
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
--- OUTSIDE RECORDS SUMMARY | 2025-02-11 10:30 | XMS_ITS | Clinical Summary ---
Author Organization [facility], Address [address] [place] [address] Phone Care Team Providers Care Wardrobe Manager Name Role Phone Marvin Khan MD Primary Care Provider [phone] Allergies Active Allergy Reactions Criticality Noted Date [...] 03/09/2022 Diabetes mellitus 03/03/2022 Overview (03/03/2022): has Retail Sales Manager;[facility],[place] Vitamin D deficiency 03/03/2022 Stage 3 chronic [...] AM EST) Hemoglobin A1C 9.1(H) (4.0-5.6) % [facility] Comment: MONITORING: In known diabetic patients, hemoglobin A1c targets should be discussed with health care provider. DIAGNOSTIC USE: The [place] Diabetes Association (ADA) and the World Health [...] Supplement 1 Testing performed or reported by [facility] Reference [employer], a Service of [facility], [address] [place] [id number] Molina Vaca MD, Slip Cover Seamstress [facility]# [id number] Blood specimen (specimen) Venous blood / Unknown 05/26/2023 8:49 AM EST 05/26/2023 9:27 AM EST us Wyatt Nance MD LAB BLOOD ORDERABLES Final Resul t [facility] from Last 3 Months or Most Recently Relevant to Health Maintenance Insurance [facility] Care Teams Wardrobe Manager Relationship Specialty Start Date End Date Marvin Khan MD [address] [place] [address] [address] [place] PCP - General Internal Medicine 03/02/22
== END 2025-02-11 09:27 | disposition home or self-care (01) ==
LOC: HO.US 09:26
PROVIDERS: PCP Family Medicine; Visit Provider Surgery
DX: E66.01 Morbid (severe) obesity due to excess calories (principal); E11.9 Type 2 diabetes mellitus without complications; Z79.4 Long term (current) use of insulin; E78.5 Hyperlipidemia, unspecified; I10 Essential (primary) hypertension; G47.33 Obstructive sleep apnea (adult) (pediatric)
CPT/HCPCS: 76700; 76981

== ENCOUNTER → 2025-02-11 09:27 | Outpatient (BNV) | payer MEDICARE, SELFPAY | PROVIDERS: PCP Family Medicine; Visit Provider Radiology Diagnostic Radiology | DX: E66.01 Morbid (severe) obesity due to excess calories (principal) | CPT/HCPCS: 76700 ==

== ENCOUNTER 2025-02-14 08:52 | Outpatient (REF) | payer MEDICARE, SELFPAY ==
--- NOTE | ~2025-02-14 | FL_ITS ---
EXAMINATION: XR FLUOROSCOPY UPPER GI WITH AIR CLINICAL INFORMATION: Moderate to severe obesity due to excess calories COMPARISON: None available. TECHNIQUE: Routine upper GI air contrast study was performed in upright and lying position. FINDINGS: On oral administration of thick barium and effervescent granules there is normal propagation bolus from the oral cavity through the pharynx, esophagus into stomach. A prominent cricoesophageal sphincter is noted without proximal obstruction. Note is no intraluminal filling defect or extrinsic compression. On placing patient supine and prone lying the course, caliber and peristalsis in the stomach, duodenal bulb and this CT is normal. The mucosal pattern of stomach and the duodenum is normal. No gas or reflux or hiatal hernia seen. FLUOROSCOPY TIME: 56 seconds DOSE AREA PRODUCT: 1612 uGy-m2 (microgray-meter squared) FL/FL upper GI w air IMPRESSION: Unremarkable upper GI air contrast examination. Electronically signed by: Jim Carlos MD 02/14/2025 09:40 AM EDT
--- NOTE | ~2025-02-14 | XR_ITS ---
EXAMINATION: XR CHEST 2 VIEWS HISTORY: E66.01 - Morbid (severe) obesity due to excess calories COMPARISON: There are no prior studies available for comparison. FINDINGS: PA and lateral views of the chest are submitted. The lungs are expanded and clear. There is no pleural effusion, pneumothorax, or pulmonary vascular congestion. There is a curvilinear density in the right superior mediastinum which may represent an atypical appearance of an azygos lobe. The heart is normal in size. There is degenerative disc disease of the spine. 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 Further evaluation with chest CT is recommended. Electronically signed by: Jigar Rey MD 02/14/2025 09:47 AM EDT
[2025-02-14 09:48] LABS: MANUAL DIFF FLAG NO
[2025-02-14 10:41] LABS: Hematocrit 49.7 % (42.0-52.0); Hemoglobin 16.4 g/dl (14.0-18.0); Imm Gran Abs Auto 0.03 X10*3/uL (0.00-0.03); Imm Gran Pct Auto 0.3 % (0.0-0.4); Lymphocytes Absolute Auto 1.3 X10*3/uL (1.2-4.9); Mean Corpuscular HGB Conc 33.0 g/dl (31.0-36.0); Mean Corpuscular Hemoglobin 29.0 pg (27.0-33.0); Mean Corpuscular Volume 87.8 fL (80.0-98.0); NRBC Abs Auto 0.000 X10*3/uL (0.0-0.012); NRBC Pct Auto 0.0 /100WBC (0.0-0.2); Platelet Count 239 X10*3/uL (160-400); Red Blood Count 5.66 X10*6/uL (4.60-5.80); White Blood Count 8.9 X10*3/uL (4.8-10.8)
[2025-02-14 11:30] LABS: Alanine Aminotransferase 11 U/L (0-40); Albumin Level 4.5 g/dL (3.5-5.0); Alkaline Phosphatase 83 U/L (39-117); Anion Gap 14 (12-20); Aspartate Amino Transferase 19 U/L (5-37); Blood Urea Nitrogen 25 mg/dL (9-16); Calcium 9.7 mg/dL (8.4-10.2); Carbon Dioxide 28 mmol/L (22-29); Chloride 101 mmol/L (96-108); Cholesterol 125 mg/dL (<200); Estimated Glomerular Filt Rate 49; HDL Cholesterol 40 mg/dL (>40); Iron 97 mcg/dL (45-160); Percent Iron Saturation 42 % (15-50); Potassium 3.7 mmol/L (3.3-5.1); Sodium 139 mmol/L (135-145); Total Iron Binding Capacity 233 mcg/dL (228-428); Total Protein 7.0 g/dL (6.5-8.0); Triglycerides 119 mg/dL (<150); Unsaturated Iron Binding 136 ug/dL
[2025-02-14 11:36] LABS: Ferritin 514 ng/mL (20-250)
[2025-02-14 11:49] LABS: Folate 6.1 ng/mL (> or = 4.0); Vitamin B12 384 pg/mL (200-900)
== END 2025-02-14 08:53 | disposition home or self-care (01) ==
LOC: HO.XRAY 08:52
PROVIDERS: PCP Family Medicine; Visit Provider Surgery
DX: E11.9 Type 2 diabetes mellitus without complications (principal); E66.01 Morbid (severe) obesity due to excess calories; I10 Essential (primary) hypertension; E78.5 Hyperlipidemia, unspecified; G47.33 Obstructive sleep apnea (adult) (pediatric); Z79.4 Long term (current) use of insulin; Z13.21 Encounter for screening for nutritional disorder
CPT/HCPCS: 36415; 71046; 74246; 80053; 80061; 82306; 82607; 82728; 82746; 83036; 83525; 83540; 84425; 84443; 84590; 84630; 85025; 86140

== ENCOUNTER → 2025-02-14 08:56 | Outpatient (BNV) | payer MEDICARE, SELFPAY | PROVIDERS: PCP Family Medicine; Visit Provider Radiology Diagnostic Radiology | DX: E66.01 Morbid (severe) obesity due to excess calories (principal); Z68.43 Body mass index [BMI] 50.0-59.9, adult | CPT/HCPCS: 71046; 74246 ==

== ENCOUNTER 2025-02-21 08:49 | Outpatient (AMB) | payer MEDICARE, SELFPAY ==
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
--- OUTSIDE RECORDS SUMMARY | 2025-02-21 09:29 | XMS_ITS | Clinical Summary ---
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 DIAGNOSTIC USE: The [place] Diabetes Association (ADA) and the World Health [...] Supplement 1 Testing performed or reported by [facility] [employer], a Service of [facility], [address] [place] [id number] Molina Vaca MD, Galley Stripper [facility]# [id number] Blood specimen (specimen) Venous blood / Unknown 05/26/2023 8:49 AM EST 05/26/2023 9:27 AM EST us Wyatt Nance MD LAB BLOOD ORDERABLES Final Resul t [facility] from Last 3 Months or Most Recently Relevant to Health Maintenance Insurance [facility] Care Teams Counter Clerk [employer] Relationship Specialty Start Date End Date Marvin Khan MD [address] [place] [address] [address] [place] PCP - General Internal Medicine 03/02/22
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
== END 2025-02-21 10:06 | disposition home or self-care (01) ==
LOC: HO.HBST 08:50
PROVIDERS: PCP Family Medicine; Visit Provider Counselor Mental Health
DX: F43.20 Adjustment disorder, unspecified (principal); Z71.89 Other specified counseling
CPT/HCPCS: 90791

== ENCOUNTER 2025-02-26 06:30 | Day surgery (SDC) | payer MEDICARE, SELFPAY ==
--- OUTSIDE RECORDS SUMMARY | 2025-02-14 07:41 | XMS_ITS | Clinical Summary ---
Author Organization [facility], Address [address] [facility] [address] [facility] [place] [address] Phone Care Team Providers Care Veterinary Radiologist Name Role Phone Marvin Khan MD Primary Care Provider [phone]- [phone] Allergies Active Allergy Reactions Criticality Noted Date [...] 03/09/2022 Diabetes mellitus 03/03/2022 Overview (03/03/2022): has Slitting And Shipping Supervisor;[facility],[place] Vitamin D deficiency 03/03/2022 Stage 3 chronic [...] AM EST) Hemoglobin A1C 9.1(H) (4.0-5.6) % [facility] Comment: MONITORING: In known diabetic patients, hemoglobin A1c targets should be discussed with health care provider. DIAGNOSTIC USE: The Citizen Of [place] Diabetes Association (ADA) and the World Health [...] Supplement 1 Testing performed or reported by [facility] Reference [employer], a Service of [facility], [address] [place] [id number] Molina Vaca MD, Nuisance Wildlife Control Operator [facility]# [id number] Blood specimen (specimen) Venous blood / Unknown 05/26/2023 8:49 AM EST 05/26/2023 9:27 AM EST us Wyatt Nance MD LAB BLOOD ORDERABLES Final Resul t [facility] from Last 3 Months or Most Recently Relevant to Health Maintenance Insurance [facility] Care Teams Veterinary Radiologist Relationship Specialty Start Date End Date Marvin Khan MD [address] [place] [address] [address] [place] PCP - General Internal Medicine 03/02/22
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
--- NOTE | 2025-02-21 09:43 | HO.ANESPROP2 ---
Documented by User: Brianne Fuller NP 02/21/25 09:47 HPI - Anesthesia Eval Consult details Narrative: 59yo M for Upper Endoscopy BMI 54 PMFSH Active Problems Active Problems: All Active Problems Insulin dependent type 2 diabetes mellitus (Acute) DJD (degenerative joint disease) (Acute) Hyperlipidemia (Acute) Obstructive sleep apnea on CPAP (Acute) Hypertension (Acute) Morbid obesity (Acute) Morbid obesity with BMI of 50.0-59.9, adult (Acute) Diabetes (Acute) Venous stasis (Acute) Arthritis of both knees (Acute) Past Medical History Medical History (Updated 02/26/25 @ 06:41 by Edda Thompson, RN) Chronic renal insufficiency Insulin dependent type 2 diabetes mellitus DJD (degenerative joint disease) Hyperlipidemia Obstructive sleep apnea on CPAP Hypertension Morbid obesity Venous stasis Diabetes Family History Family History (Updated 07/12/24 @ 14:21 by ANGELITA Naqvi) Father Stroke Brother Leukemia Sister Family history of cervical cancer Surgical History Surgical History (Updated 02/26/25 @ 06:43 by Edda Thompson RN) Hx of tonsillectomy History of inguinal hernia repair History of umbilical hernia repair Hx of vertebral fracture repair Hx of hand surgery Social History Social History (Updated 06/13/24 @ 08:41 by ANGELITA Malin) Patient Tobacco Use Status: Never used Tobacco Use of substances other than those prescribed or required for medical reasons: No Are you DNR?: No Advance Directives: No Advance Directives Information Provided: Yes Current occupational status: retired Meds Allergies Allergy/AdvReac Type Severity Reaction Status Date / Time atorvastatin (From Lipitor) AdvReac Joint Pain Verified 02/26/25 06:44 cephazolin Allergy Swelling Uncoded 02/26/25 06:43 iv contrast Allergy unknown Uncoded 02/26/25 06:43 Home Medications ?Medication ?Instructions ?Recorded ?Confirmed ?Last Taken ?Type bumetanide 1 mg tablet 1 mg PO BID 06/13/24 07/23/24 Unknown History glipizide 10 mg tablet, extended 10 mg PO DAILY 06/13/24 07/23/24 Unknown History release 24 hr insulin glargine 100 unit/mL (3 60 unit subcut BEDTIME 06/13/24 07/23/24 Unknown History mL) subcutaneous pen (Lantus Solostar U-100 Insulin) losartan 100 mg tablet 100 mg PO DAILY 06/13/24 07/23/24 Unknown History rosuvastatin 20 mg tablet mg PO DAILY 06/13/24 07/23/24 Unknown History spironolactone 25 mg tablet 50 mg PO BID 06/13/24 07/23/24 Unknown History Exam Pertinent Lab Results Pertinent Lab Results: Laboratory Tests 02/14/25 09:45 WBC 8.9 Hgb 16.4 Hct 49.7 Plt Count 239 Sodium 139 Potassium 3.7 Chloride 101 Carbon Dioxide 28 BUN 25 H Creatinine 1.45 H Assessment and Plan Assessment Anesthesia Assessment: Chart Reviewed Documented by User: María Gonzalez MD 02/26/25 08:59 PMFSH Past Medical History Medical History (Updated 02/26/25 @ 06:41 by Edda Thompson RN) Chronic renal insufficiency Insulin dependent type 2 diabetes mellitus DJD (degenerative joint disease) Hyperlipidemia Obstructive sleep apnea on CPAP Hypertension Morbid obesity Venous stasis Diabetes Family History Family History (Updated 07/12/24 @ 14:21 by ANGELITA Naqvi) Father Stroke Brother Leukemia Sister Family history of cervical cancer Surgical History Surgical History (Updated 02/26/25 @ 06:43 by Edda Thompson RN) Hx of tonsillectomy History of inguinal hernia repair History of umbilical hernia repair Hx of vertebral fracture repair Hx of hand surgery History of Problems with Anesthesia: No Social History Social History (Updated 06/13/24 @ 08:41 by ANGELITA Malin) Patient Tobacco Use Status: Never used Tobacco Use of substances other than those prescribed or required for medical reasons: No Are you DNR?: No Advance Directives: No Advance Directives Information Provided: Yes Current occupational status: retired Meds Allergies Allergy/AdvReac Type Severity Reaction Status Date / Time atorvastatin (From Lipitor) AdvReac Joint Pain Verified 02/26/25 06:44 cephazolin Allergy Swelling Uncoded 02/26/25 06:43 iv contrast Allergy unknown Uncoded 02/26/25 06:43 Home Medications ?Medication ?Instructions ?Recorded ?Confirmed ?Last Taken ?Type bumetanide 1 mg tablet 1 mg PO BID 06/13/24 07/23/24 Unknown History glipizide 10 mg tablet, extended 10 mg PO DAILY 06/13/24 07/23/24 Unknown History release 24 hr insulin glargine 100 unit/mL (3 60 unit subcut BEDTIME 06/13/24 07/23/24 Unknown History mL) subcutaneous pen (Lantus Solostar U-100 Insulin) losartan 100 mg tablet 100 mg PO DAILY 06/13/24 07/23/24 Unknown History rosuvastatin 20 mg tablet mg PO DAILY 06/13/24 07/23/24 Unknown History spironolactone 25 mg tablet 50 mg PO BID 06/13/24 07/23/24 Unknown History Exam Airway Mallampati Class: III TM Dist: >3cm Neck ROM: Limited Loose/Missing/Broken Teeth: No Heart: RRR Lungs: CTA Assessment and Plan Final Anesthetic Review History of Problems with Anesthesia: No NPO: Yes ASA Class: III Final Preanesthetic Review: Meds/Allgs Chart Reviewed, Consent Obtained/Reviewed and Anes Risks/Benef Reviewed Patient Risk: Intermediate Anesthetic Plan Anesthetic Plan: MAC: Disposition: Standard PACU
[2025-02-22 09:31] VITALS: BMI 54.0
[2025-02-26 06:44] VITALS: BMI 54.2
[2025-02-26 06:49] VITALS: BP 111/70; PULSE 88; RESP 16; TEMP 35.8; O2SAT 98
[2025-02-26] MEDS: Lactated Ringers 1,000 ML 80 ML IVCONT (07:07)
[2025-02-26 07:15] LABS: Glucose, Whole Blood 154 mg/dL (60-115)
--- NOTE | 2025-02-26 07:37 | P.HPSUR_ITS ---
Pre-Procedural Eval Section A - 24 Hr Update-Section A only Date of Service: 02/26/25 The patient is an INPATIENT: No The patient has been examined within 24 hours of the surgical procedure. The History & Physical has been completed within 30 days and I have reviewed it.: Yes Section B - Complete if H&P > 30 days Chief Complaint: Morbid (severe) obesity due to excess calories Relevant Family History (Specify if Yes): No Relevant Social History: None Present Medications: None Medical History: No relevant PMH History of Previous Operations: No relevant previous surgery Allergies: Allergies Allergy/AdvReac Type Severity Reaction Status Date / Time atorvastatin (From Lipitor) AdvReac Joint Pain Verified 02/26/25 06:44 cephazolin Allergy Swelling Uncoded 02/26/25 06:43 iv contrast Allergy unknown Uncoded 02/26/25 06:43 Review of Systems Sugical H&P ROS: Negative: Constitution, Cardiovascular, Respiratory, Neurological, Psychiatric, Hem-Onc, Allergic/Immunologic, Gastrointestinal, Genitourinary, Musculoskeletal, Integumentary, Endocrine and Eyes/Ears/Nose/Throat Exam Surgical H&P Exam: Normal: HEENT, Normal: Heart, Normal: Lungs, Normal: Extremi ties, Normal: Abdomen, Normal: Skin and Normal: Neurological Plan Diagnosis/Plan: Unchanged (EGD to assess the stomach's anatomy. Risks of bleeding and perforation were discussed with the patient and he is in agreement with the plan.) I have reviewed the history and physical and performed a pertinent physical examination on my patient. No changes have occurred unless specified. Time Spent With Patient Time: Total time managing care of this patient today ____ minutes.
--- NOTE | 2025-02-26 07:38 | P.BOP_ITS ---
Brief Operative Note Date of Service: 02/26/25 Pre-op diagnosis: Morbid obesity Procedure: PROCEDURE DATE: 02/26/2025 PREOPERATIVE DIAGNOSIS: Morbid obesity POSTOPERATIVE DIAGNOSIS: ?Same as above. 1) Reducible diaphragmatic hernia, 2) gastritis PROCEDURE: Kveihika-[id number] with biopsies Surgeon: Maria Isabel Yun M.D.. Ph.D. Buffing Line Set Up Worker: None ? Anesthesia: IV sedation Estimated blood loss: ?Minimal FINDINGS AND PROCEDURE: ? OPERATIVE INDICATIONS: ?The patient is a 59 year old male known to me who is interested in bariatric surgery. Based on this information I recommended an upper endoscopy to evaluate the patient's symptoms. Risks and complications of the surgery were discussed with the patient in advance particularly the possibility of perforation or bleeding that may require surgical intervention. The patient understood the risks and was in agreement with the plan. ? PROCEDURE: After informed consent was obtained by the patient, the patient was ?transferred to the Operating Room and was placed in the supine position.? After successful induction of IV sedation, a mouth block was inserted and the patient was placed in the left lateral decubitus position. An upper endoscopy was performed next, the oropharynx and esophagus appeared within the normal limits. There was a reducible hiatal hernia. The z-line was smooth. Two biopsies were obtained from the distal esophagus 2-3 cm proximal to the GE junction and two additional biopsies from the GE junction. The stomach was entered and it appeared to be of normal size. There was diffuse gastritis but mostly at the antrum. There was no stricture or ulcer. A biopsy was obtained from the gastric fundus and the antrum. No significant bleeding was noted from any of the biopsy sites. Retroflexion of the scope confirmed the presence of a small sliding diaphragmatic hernia. The scope was then advanced into the duodenum which appeared to be normal as well. At that point the duodenum ?and the stomach were decompressed and the scope was withdrawn from the patient's mouth. The patient extubated and was transferred in stable condition to the Recovery Room for further care. I was present and performed all steps of the procedure. There were no residents to assist with this case. Robbi Yun M.D., Ph.D. Surgeon: Juan Antonio Yun MD Anesthesia: MAC Was an Buffing Line Set Up Worker used for this Procedure?: No Estimated blood loss (mL): 0 IV fluids (mL): 400 Urine output (mL): 0 (No Jean Baptiste to record output) Pathology: other (1) antrum x1, 2) fundus x1, 3) GE junction x2, 4) distal esophagus x2) Condition: stable Disposition: PACU
[2025-02-26 08:07] VITALS: BP 139/82; PULSE 80; RESP 17; TEMP 37.2; O2SAT 100
[2025-02-26 08:22] VITALS: BP 154/77; PULSE 71; RESP 20; O2SAT 96
[2025-02-26 08:37] VITALS: BP 164/87; PULSE 70; RESP 20; TEMP 36.3; O2SAT 97
== END 2025-02-26 09:28 | disposition home or self-care (01) ==
PROVIDERS: PCP Family Medicine; Visit Provider Surgery
PROC: 0DJ08ZZ Inspection of Upper Intestinal Tract, Via Natural or Artificial Opening Endoscopic (ICD-10-PCS; CPT 43235; principal; 2025-02-26 07:30)
DX: E66.01 Morbid (severe) obesity due to excess calories (principal); Z68.43 Body mass index [BMI] 50.0-59.9, adult; K29.50 Unspecified chronic gastritis without bleeding; K44.9 Diaphragmatic hernia without obstruction or gangrene; I10 Essential (primary) hypertension; E11.9 Type 2 diabetes mellitus without complications; E78.5 Hyperlipidemia, unspecified; I87.8 Other specified disorders of veins; G47.33 Obstructive sleep apnea (adult) (pediatric); M19.90 Unspecified osteoarthritis, unspecified site; Z79.4 Long term (current) use of insulin; Z79.84 Long term (current) use of oral hypoglycemic drugs; Z79.899 Other long term (current) drug therapy; Z99.89 Dependence on other enabling machines and devices; Z88.8 Allergy status to other drugs, medicaments and biological substances; Z88.1 Allergy status to other antibiotic agents; Z91.041 Radiographic dye allergy status; Z98.890 Other specified postprocedural states
CPT/HCPCS: 43239; 82947; 88305; 88313; 88342; J2003; J2250; J2704

== ENCOUNTER → 2025-02-26 06:30 | Outpatient (BNV) | payer MEDICARE, SELFPAY | PROVIDERS: PCP Family Medicine; Visit Provider Surgery | DX: E66.01 Morbid (severe) obesity due to excess calories (principal); Z68.43 Body mass index [BMI] 50.0-59.9, adult; K44.9 Diaphragmatic hernia without obstruction or gangrene; K29.70 Gastritis, unspecified, without bleeding | CPT/HCPCS: 43239 ==